=== PATIENT | male | born 1980 | race Caucasian/White ===

== ENCOUNTER 2021-05-11 13:45 | Emergency (ER) | payer SELFPAY ==
[2021-05-11 13:46] VITALS: BP 128/90; PULSE 106; RESP 18; TEMP 36.4; O2SAT 98; BMI 21.6
--- NOTE | 2021-05-11 18:26 | ED.RN ---
THIS RN WENT TO LOCATE PATIENT IN WAITING ROOM, AND PT NO WHERE TO BE FOUND. SECURITY CONTACTED, THEY ARE ALSO UNSURE WHERE PT IS. SECURITY WAS SITTING WITH PT PRIOR TO PT LEAVING. SHALONDA PRINCE CONTACTED
--- NOTE | 2021-05-11 18:32 | ED.RN ---
PT WAS NOT FOUND TO BE SITTING IN THE HALLWAY. SECURITY HAD WALKED AWAY AND TRIAGE AND THE ENTRANCE WAY WERE BUSY. SECURITY CAMERAS WERE CHECKED TO SEE THE PT LEFT AT [id number]. DISPATCH CALLED AND INFORMATION ALONG WITH A DESCRIPTION WERE GIVEN.
== END 2021-05-11 17:15 | disposition left against medical advice (07) ==
LOC: ED 20:25
DX: Z53.21 Procedure and treatment not carried out due to patient leaving prior to being seen by health care provider (principal)